=== PATIENT | female | born 1975 | race Caucasian/White ===

== ENCOUNTER → 2016-07-24 | Outpatient (CLI) | payer BC ==
[~2016-07-24] MED LIST: HYDR8TAB PO; LEVO112T4 PO; MEPE1TAB PO; TOPI100T20 PO
--- NOTE | 2016-07-24 14:39 | DIAGNOSTIC IMAGING REPORT ---
SACRUM COCCYX MIN 2 VIEWS CLINICAL HISTORY: W01.0XXA Fall from other slipping, tripping, or [id number]. Sacral/coccyx pain. COMPARISON STUDY: None. FINDINGS: There is a transitional vertebra at the lumbosacral junction. No acute fracture or subluxation within the sacrum or coccyx. Presacral soft tissues are intact. Mild sclerosis at the inferior aspect of the left sacroiliac joint. This may represent early degenerative change. The visualized pelvic bones are intact. IMPRESSION: No fractures within the sacrum or coccyx. Electronically signed by: Donnie Salmeron M.D. 07/24/2016 2:36 PM Dictated Date/Time: 07/24/2016 2:34 PM
== END | disposition home or self-care (01) ==
LOC: C.RAD1850 14:17
PROVIDERS: ATTEND Internal Medicine
DX: M54.5 Low back pain (principal); W01.0XXA Fall on same level from slipping, tripping and stumbling without subsequent striking against object, initial encounter

== ENCOUNTER → 2016-09-17 | Outpatient (CLI) | payer BC ==
[2016-09-17 17:06] LABS: THYROID STIMULATING HORMONE 1.63 uIu/ml (0.300-4.500)
== END | disposition home or self-care (01) ==
LOC: C.LAB1850 15:13
PROVIDERS: ATTEND Internal Medicine Endocrinology, Diabetes & Metabolism
DX: E03.9 Hypothyroidism, unspecified (principal)

== ENCOUNTER → 2017-03-25 | Outpatient (CLI) | payer BC ==
[2017-03-25 09:53] LABS: THYROID STIMULATING HORMONE 2.45 uIu/ml (0.300-4.500)
== END | disposition home or self-care (01) ==
LOC: C.LAB1850 07:49
PROVIDERS: ATTEND Physician Assistant
DX: E03.9 Hypothyroidism, unspecified (principal)

== ENCOUNTER → 2017-06-22 | Outpatient (CLI) | payer BC ==
[2017-06-22 10:26] LABS: THYROID STIMULATING HORMONE 0.572 uIu/ml (0.300-4.500)
== END | disposition home or self-care (01) ==
LOC: C.LAB1850 07:40
PROVIDERS: ATTEND Physician Assistant
DX: E03.9 Hypothyroidism, unspecified (principal)

== ENCOUNTER → 2017-07-27 | Outpatient (CLI) | payer BC ==
[2017-07-27 16:37] LABS: BASO % 0.5 %; BASO ABS # 0.03 K/uL (0-0.2); EOS ABS # 0.06 K/uL (0-0.5); HEMATOCRIT 40.5 % (37-47); HEMOGLOBIN 14.3 g/dL (12.0-16.0); IG# 0.02 K/uL (0.00-0.02); LYMPH % 34.8 %; LYMPH ABS # 2.09 K/uL (1.2-3.4); MEAN CELL VOLUME 91.6 fL (80-100); MEAN CORPUSCULAR HEMOGLOBIN 32.4 pg (25-34); MEAN CORPUSCULAR HGB CONC 35.3 g/dl (32-36); MEAN PLATELET VOLUME 9.8 fL (7.4-10.4); MONO % 5.7 %; MONO ABS # 0.34 K/uL (0.11-0.59); NEUT % 57.7 %; NEUT ABS # 3.47 K/uL (1.4-6.5); PLATELET COUNT 198 K/uL (130-400); RED CELL DISTRIBUTION WIDTH CV 12.2 % (11.5-14.5); RED CELL DISTRIBUTION WIDTH SD 40.9 fL (36.4-46.3); WHITE BLOOD COUNT 6.01 K/uL (4.8-10.8)
[2017-07-27 16:50] LABS: ALBUMIN 4.2 gm/dl (3.4-5.0); ALT/SGPT 20 U/L (12-78); AST/SGOT 8 U/L (15-37); BLOOD UREA NITROGEN 16 mg/dl (7-18); CALCIUM 8.8 mg/dl (8.5-10.1); CARBON DIOXIDE 24 mmol/L (21-32); CREATININE 0.85 mg/dl (0.60-1.20); GLUCOSE 88 mg/dl (70-99); POTASSIUM 3.8 mmol/L (3.5-5.1); SODIUM 139 mmol/L (136-145)
[2017-07-27 16:53] LABS: ALKALINE PHOSPHATASE 49 U/L (45-117); TOTAL PROTEIN 7.5 gm/dl (6.4-8.2)
== END | disposition home or self-care (01) ==
LOC: C.LAB1850 15:04
PROVIDERS: ATTEND Psychiatry & Neurology Neurology
DX: M25.512 Pain in left shoulder (principal); G54.0 Brachial plexus disorders

== ENCOUNTER → 2017-07-31 | Outpatient (CLI) | payer BC ==
--- NOTE | 2017-07-31 11:41 | DIAGNOSTIC IMAGING REPORT ---
C-SPINE ROUTINE 4 OR 5 VIEWS CLINICAL HISTORY: Neck pain. Brachial plexopathy. COMPARISON STUDY: Cervical spine MRI January 28, 2016. FINDINGS: Trainee of the normal cervical lordosis is noted. Vertebral body heights are maintained. There is no fracture or suspicious lesion. Disc spaces are preserved. Prevertebral soft tissues are unremarkable. IMPRESSION: Unremarkable cervical spine radiographs. Electronically signed by: Diego Fountain M.D. 07/31/2017 11:40 AM Dictated Date/Time: 07/31/2017 11:36 AM
== END | disposition home or self-care (01) ==
LOC: C.RAD1850 11:24
PROVIDERS: ATTEND Psychiatry & Neurology Neurology
DX: G54.0 Brachial plexus disorders (principal); M54.2 Cervicalgia

== ENCOUNTER → 2017-08-13 | Outpatient (CLI) | payer BC ==
[~2017-08-13] MED LIST changes: +GADAVIST IV PRN
--- NOTE | 2017-08-13 15:57 | DIAGNOSTIC IMAGING REPORT ---
CERVICAL SPINE COMBO HISTORY: Pain. Neuropathy. M54.2 Neck pain TECHNIQUE: Multiplanar multisequence MRI of the cervical spine was performed both before and after the use of intravenous contrast. COMPARISON STUDY: None. FINDINGS: Unremarkable signal characteristics of the vertebral bodies. Intervertebral this are unremarkable. Signal characteristics the cervical cord are within normal limits. Sagittal images suggests a slight disc bulge at C5-C6. No abnormal postcontrast sagittal enhancement is seen. Incidental note is made of low-lying cerebellar tonsils. C2-C3: No significant central canal or neural foraminal narrowing. C3-C4: No significant central canal or neural foraminal narrowing. C4-C5: No significant central canal or neural foraminal narrowing. C5-C6: Minimal broad-based disc bulge. Partial effacement anterior subarachnoid space. No contact with the cervical cord. Minimal narrowing left neuroforamina. C6-C7: No significant central canal or neural foraminal narrowing. C7-T1: No significant central canal or neural foraminal narrowing. IMPRESSION: 1. Minimal broad-based disc bulge C5-C6 of questionable clinical significance. 2. Minimal narrowing left neural foramina C5-C6. 3. Otherwise negative study. 4. No abnormal postcontrast enhancement. The above report was generated using voice recognition software. It may contain grammatical, syntax or spelling errors. Electronically signed by: Scott De Los Santos M.D. 08/13/2017 3:55 PM Dictated Date/Time: 08/13/2017 3:52 PM
== END | disposition home or self-care (01) ==
LOC: C.MRI 14:38
PROVIDERS: ATTEND Physician Assistant
DX: M54.2 Cervicalgia (principal)

== ENCOUNTER → 2018-03-04 | Outpatient (CLI) | payer BC ==
[~2018-03-04] MED LIST changes: -GADAVIST IV PRN; +OXYC-57 PO
== END | disposition home or self-care (01) ==
LOC: C.LAB1850 09:22
PROVIDERS: ATTEND Physician Assistant
DX: E03.9 Hypothyroidism, unspecified (principal)